=== PATIENT | female | born 2005 | race Caucasian/White ===

== ENCOUNTER 2025-03-03 18:28 | Emergency (ER) | payer OTHER ==
[2025-03-03 19:50] LABS: ALT (SGPT) 20 U/L (Less than 34); AST (SGOT) 30 U/L (11-34); Albumin 4.7 g/dL (3.1-4.5); Alkaline Phosphatase 61 U/L (40-100); Anion Gap 13 mmol/L (10-20); BUN (Urea Nitrogen) 11 mg/dL (7.0-18.7); Bilirubin, Total 0.4 mg/dL (0.3-1.2); Calc. Creatinine Clearance 0 mL/min (70-130); Calcium 9.5 mg/dL (7.8-10.44); Carbon Dioxide 23 mmol/L (22-29); Chloride 106 mmol/L (98-107); Globulin 3.5 g/dL (2.4-3.5); Glucose 106 mg/dL (70-105); Potassium 3.9 mmol/L (3.5-5.1); Sodium 138 mmol/L (136-145)
[2025-03-03 20:08] LABS: #Basophils Less than 0.03 10x3/uL (0.0-0.2); #Eosinophils Less than 0.03 10x3/uL (0.0-0.5); #Monocytes 0.55 10x3/uL (0.0-1.1); #Neutrophils 1.66 10x3/uL (1.5-8.4); %Basophils 0.3 % (0.0-2.0); %Eosinophils 0.6 % (0.0-6.0); %Lymphocytes 35.3 % (18.0-47.0); %Monocytes 15.9 % (0.0-10.0); %Neutrophils 47.9 % (40.0-75.0); Hematocrit 34.8 % (34.9-44.5); Hemoglobin 11.8 g/dL (12.0-15.5); Mean Corpuscular Hemoglobin 29.9 pg (27.0-33.0); Mean Corpuscular Volume 88.1 fL (81.6-98.3); Platelet Count 165 10x3/uL (150-450); Red Blood Cell (RBC) Count 3.95 10x6/uL (3.90-5.03); White Blood Cell (WBC) Count 3.46 10x3/uL (3.5-10.5)
[2025-03-03] MEDS ORDERED: Ketorolac Tromethamine 30 MG (1 mL) VIAL ONE (21:58)
== END 2025-03-03 22:42 ==
LOC: CSHERS 18:28
DX: N60.12 Diffuse cystic mastopathy of left breast (principal)
CPT/HCPCS: 80053; 83605; 85025; 96374; J1885